=== PATIENT | female | born 1935 | race Asian ===

== ENCOUNTER 2023-04-04 19:49 | Emergency (ER) | payer MEDICARE, OTHER ==
[~2023-04-04] VITALS: Ht 142.2 cm; Wt 45.0 kg
[2023-04-04 19:50] VITALS: BP 0/0
[2023-04-04 20:09] LABS: BASOPHILS % (AUTO) 1.6 % (0.0-2.0); HEMATOCRIT 38.4 % (36-46); HEMOGLOBIN 10.9 g/dL (12.0-16.0); LYMPHOCYTES # (AUTO) 6.4 K/uL (1.0-4.8); LYMPHOCYTES % (AUTO) 48.9 % (22.0-44.0); MEAN CORPUSCULAR HEMOGLOBIN 23.7 pg (26.0-34.0); MEAN CORPUSCULAR HGB CONC 28.4 G/dL (31.0-37.0); MEAN CORPUSCULAR VOLUME 83 fL (80-100); MONOCYTES # (AUTO) 0.5 K/uL (0.1-1.0); MONOCYTES % (AUTO) 4.2 % (2.0-9.0); NEUTROPHILS # (AUTO) 5.8 K/uL (1.8-7.7); NEUTROPHILS % (AUTO) 44.3 % (40.0-70.0); RED BLOOD CELL COUNT(AUTO) 4.61 MIL/uL (4.00-5.20); RED CELL DISTRIBUTION WIDTH 15.7 % (11.5-14.5)
[2023-04-04 20:27] LABS: ALANINE AMINOTRANSFERASE 880 U/L (12-78); ALBUMIN 2.4 g/dL (3.4-5.0); ALKALINE PHOSPHATASE 104 U/L (46-116); ANION GAP 22 mmol/L (8-16); BILIRUBIN,TOTAL 0.2 mg/dL (0.1-1.0); CALCIUM, TOTAL 9.4 mg/dL (8.8-10.5); CARBON DIOXIDE 16 mmol/L (22-29); CHLORIDE 106 mmol/L (98-107); CREATININE 1.63 mg/dL (0.60-1.30); GLOMERULAR FILTR. RATE CALC 30 mL/min (>60); GLUCOSE,RANDOM 340 mg/dL (70-110); LIPASE 236 U/L (73-393); SODIUM SERUM 144 mmol/L (136-145); UREA NITROGEN, BLOOD 32 mg/dL (7-18)
[2023-04-04 20:38] LABS: POTASSIUM 6.1 mmol/L (3.5-5.1)
[2023-04-04 20:50] LABS: PLATELET COUNT (AUTO) 46 K/uL (150-450)
[2023-04-04 20:56] LABS: LACTIC ACID 17.5 mmol/L (0.4-2.0)
[2023-04-04 21:03] LABS: ASPARTATE AMINOTRANSFERASE 2294 U/L (15-37)
== END 2023-04-04 23:36 ==
LOC: EMS 19:49
DX: I46.9 Cardiac arrest, cause unspecified (principal)
CPT/HCPCS: 80053; 82962; 83605; 83690; 84484; 85025; 99291